=== PATIENT | male | born 1970 | race Caucasian/White ===

== ENCOUNTER 2023-12-28 15:59 | Outpatient (CLI) | payer BC | END 2023-12-28 16:00 | disposition home or self-care (01) | LOC: RAD 15:59 | PROVIDERS: ATTEND Family Medicine | DX: R07.9 Chest pain, unspecified (principal) | CPT/HCPCS: 71046 ==

== ENCOUNTER 2024-03-21 08:43 | Outpatient (CLI) | payer BC ==
[2024-03-21] MEDS ORDERED: Magnevist 469MG/ML 20 ML VIAL ONE (10:01)
== END 2024-03-21 08:44 | disposition home or self-care (01) ==
LOC: MRI 08:43
PROVIDERS: ATTEND Physician Assistant Medical
DX: R93.5 Abnormal findings on diagnostic imaging of other abdominal regions, including retroperitoneum (principal); K44.9 Diaphragmatic hernia without obstruction or gangrene; D73.89 Other diseases of spleen
CPT/HCPCS: 74183